=== PATIENT | female | born 1950 | race Caucasian/White ===

== ENCOUNTER → 2016-10-23 | Outpatient (CLI) | payer BC ==
[~2016-10-23] MED LIST: ASPEC81 PO; ASPI81TA28 PO; ATOR-22 PO; CINN1CAP2 PO; CINNAMON PO; COEN150C PO; COEN1CAP17 PO; CYAN500T PO; FISHOIL PO; GARL10007 PO; GARLTAB3 PO; GINGER PO; GLIM2TAB2 PO; LISI-461 PO; LISI5TAB3 PO; METO25TA56 PO; MULTTAB58 PO; NIAC500T8 PO; OMEGCAP2 PO; OMEP40CA41 PO
[2016-10-23 12:15] LABS: HEMATOCRIT 39.5 % (37-47); MEAN CELL VOLUME 85.7 fL (80-100); MEAN CORPUSCULAR HEMOGLOBIN 29.7 pg (25-34); MEAN CORPUSCULAR HGB CONC 34.7 g/dl (32-36); PLATELET COUNT 188 K/uL (130-400); RED BLOOD COUNT 4.61 M/uL (4.2-5.4); WHITE BLOOD COUNT 8.05 K/uL (4.8-10.8)
[2016-10-23 12:35] LABS: BLOOD UREA NITROGEN 18 mg/dl (7-18); CREATININE 0.78 mg/dl (0.60-1.20); GLUCOSE 179 mg/dl (70-99)
[2016-10-23 12:36] LABS: ALT/SGPT 22 U/L (12-78); BUN/CREATININE RATIO 22.4 (10-20); CALCIUM 9.9 mg/dl (8.5-10.1); CARBON DIOXIDE 27 mmol/L (21-32); CHLORIDE 104 mmol/L (98-107); CHOLESTEROL 166 mg/dl (0-200); POTASSIUM 4.2 mmol/L (3.5-5.1); SODIUM 140 mmol/L (136-145); TRIGLYCERIDES 98 mg/dl (0-150); VERY LOW DENSITY LIPOPROT CALC 20 mg/dl
[2016-10-23 12:37] LABS: ESTIMATED AVERAGE GLUCOSE 169 mg/dl; HA1C FLAG Normal (Normal)
[2016-10-23 12:46] LABS: ALB/GLOB RATIO 0.9 (0.9-2); ALKALINE PHOSPHATASE 90 U/L (45-117); AST/SGOT 15 U/L (15-37); CHOLESTEROL/HDL RATIO 2.4; HDL CHOLESTEROL 70 mg/dl; LDL CHOLESTEROL CALCULATED 76 mg/dl
== END | disposition home or self-care (01) ==
LOC: C.LABBFT 08:14
PROVIDERS: ATTEND Internal Medicine
DX: E11.9 Type 2 diabetes mellitus without complications (principal)

== ENCOUNTER 2016-12-19 19:14 | Emergency (ER) | payer BC, OTHER ==
[~2016-12-19] VITALS: Ht 160 cm; Wt 83.9 kg
[~2016-12-19 19:14] MED LIST changes: -ASPI81TA28 PO; -ATOR-22 PO; -CINN1CAP2 PO; -COEN1CAP17 PO; -GARL10007 PO; -GLIM2TAB2 PO; -LISI-461 PO; -METO25TA56 PO; -OMEGCAP2 PO; -OMEP40CA41 PO
[2016-12-19 19:17] VITALS: TEMP 37.1; Ht 160 cm; Wt 83.9 kg
[2016-12-19] MEDS ORDERED: PROPARACAINE HCL 0.5% OP SOLN 15 ML BTL OP STA (19:34)
[2016-12-19] MEDS ORDERED: GLIM2TAB2 PO (19:50)
[2016-12-19] MEDS ORDERED: GARL10007 PO (19:50)
[2016-12-19] MEDS ORDERED: ATOR-22 PO (19:50)
[2016-12-19] MEDS ORDERED: COEN1CAP17 PO (19:50)
[2016-12-19] MEDS ORDERED: OMEP40CA41 PO (19:50)
[2016-12-19] MEDS ORDERED: METO25TA56 PO (19:50)
[2016-12-19] MEDS ORDERED: LISI-461 PO (19:50)
[2016-12-19] MEDS ORDERED: OMEGCAP2 PO (19:50)
[2016-12-19] MEDS ORDERED: ASPI81TA28 PO (19:50)
[2016-12-19] MEDS ORDERED: CINN1CAP2 PO (19:51)
[2016-12-19] MEDS ORDERED: ARTIFICIAL TEARS OP OINT 3.5 GM TUBE OP ONE (20:15)
--- NOTE | 2016-12-19 20:17 | EMERGENCY ROOM VISIT NOTE ---
ED Visit Note First contact with patient: 19:22 I have personally seen and evaluated the patient with the physician volunteer assistant. I agree with the diagnostic/management decisions and have personally been involved in these decisions and agree with the diagnosis.
[2016-12-19 20:28] VITALS: BP 161/98; PULSE 89; O2SAT 96
--- NOTE | 2016-12-19 21:00 | EMERGENCY ROOM VISIT NOTE ---
History First contact with patient: 19:22 Chief Complaint: EYE ASSESSMENT Stated Complaint: PERFUME IN LT EYE History of Present Illness The patient is a 66 year old female who presents to the Emergency Room with complaints of left eye your dictation. The patient reports accidentally sprang perfume into her eye. She did try to flush it at home, and did have some moderate relief. She tried to call her eye doctor, but they had already left for the day. She presents to emergency department for further evaluation. She denies any blurred vision, and rates her discomfort a 2 out of 10. Tetanus immunization is up-to-date. Review of Systems 10 system review was performed and was negative except for pertinent positives and negatives as indicated in history of present illness Past Medical/Surgical History Medical Problems: (1) Diab Michaelle Wo Compl, Type Ii Or Unspec Type, Not Uncntrld (2) Esophageal Reflux (3) Hyperlipidemia Nec/Nos (4) Hypertension Nos (5) Mal Ed Skin Face Nec (6) Obesity, Nos Family History Unremarkable Social History Smoking Status: Never Smoker Alcohol Use: none Marital Status: Occupation Status: retired Current/Historical Medications Scheduled Aspirin (Aspirin Ec), 81 MG PO DAILY Atorvastatin (Lipitor), 20 MG PO HS Cinnamon (Cinnamon), 500 MG PO DAILY Coenzyme Q10 (Ubidecarenone) (Co Q 10), 100 MG PO DAILY Garlic (Garlic), 1,000 MG PO DAILY Glimepiride (Glimepiride), 2 MG PO DAILY Lisinopril (Zestril), 10 MG PO DAILY Metoprolol Tartrate (Lopressor) (Lopressor), 25 MG PO DAILY Buckeye-3 Fatty Acids (Fish Oil), 1 CAP PO DAILY Omeprazole (Prilosec), 40 MG PO DAILY Allergies Coded Allergies: Sulfa Antibiotics (Verified Allergy, Unknown, Unknown, 12/19/16) Physical Exam Vital Signs Date Time Temp Pulse Resp B/P Pulse Ox O2 Delivery O2 Flow Rate FiO2 12/19/16 20:28 89 16 161/98 96 Room Air 12/19/16 19:17 37.1 97 20 183/93 98 Room Air Right Eye Acuity: 20/30 Left Eye Acuity: 20/30 Pain Rating (0-10): 0 Physical Exam CONSTITUTIONAL: Healthy and well nourished. Alert and oriented X 3 with positive affect. Patient is not appear in any acute distress. HEENT: Normocephalic, atraumatic. Pupils equal, round and reactive. No facial erythema or edema. Examination of left eye does not show any conjunctival injection or excessive tearing. No rhinorrhea. INTEGUMENTARY: No rash or other significant dermatologic conditions noted. NEUROLOGIC: No focal neurologic deficits noted. Medical Decision & Procedures Medications Administered Medications (Trade) Dose Ordered Sig/Farhat Route Start Time Stop Time Status Last Admin Dose Admin Proparacaine HCl (Alcaine 0.5% Oph Soln) 2 drops NOW STAT OP 12/19/16 19:34 12/19/16 19:35 DC 12/19/16 20:01 2 DROPS Artificial Tears (Lacri-Lube Oph Oint) 1 appln NOW ONCE OP 12/19/16 20:15 12/19/16 20:16 DC 12/19/16 20:23 1 APPLN Procedure Attempted I irrigation with Akil lens was attempted but was mostly unsuccessful because the patient could not lay on her back. 2 drops of Alcaine were instilled into the eye, and a Akil lens was inserted. In an upright seated position, approximately 100 mL of normal saline was infused through the eye. The patient's procedure, and denied any significant symptoms. ED Course Patient history and physical exam were performed. Nurse's notes were reviewed. Attempted Akil lens irrigation was performed with only 100 mL of normal saline irrigated through the eye. At this point, the patient was provided Lacri -Lube ointment, and encouraged to use it as needed. She was instructed to follow-up with her mechanical maintenance engineer if symptoms are not improving within the next 24 hours. The patient was happy with plan of care, voiced understanding of all discharge instructions, and denied any discomfort at the time of discharge. The patient was also seen and examined by Dr. Gongora, ED attending physician, who agrees with workup and plan of care. Medical Decision Impression Primary Impression: Chemical conjunctivitis of left eye Departure Information Dispostion Home / Self-Care Forms HOME CARE DOCUMENTATION FORM, IMPORTANT VISIT INFORMATION Patient Instructions My Dialogic Additional Instructions Apply Lacri-Lube ointment to the eye as needed for relief. You may continue with your Refresh eyedrops. Follow-up with your mechanical maintenance engineer if you still have persistent irritation beyond 24 hours.
== END 2016-12-19 20:27 | disposition home or self-care (01) ==
LOC: C.EDB 19:15 → C.EDD 20:27
DX: H10.212 Acute toxic conjunctivitis, left eye (principal); E11.9 Type 2 diabetes mellitus without complications; K21.9 Gastro-esophageal reflux disease without esophagitis; I10 Essential (primary) hypertension; E78.5 Hyperlipidemia, unspecified; Z79.82 Long term (current) use of aspirin

== ENCOUNTER → 2017-01-23 | Outpatient (CLI) | payer BC ==
[~2017-01-23] MED LIST changes: -ASPEC81 PO; +ASPI81TA28 PO; +ATOR-22 PO; +CINN1CAP2 PO; -CINNAMON PO; -COEN150C PO; +COEN1CAP17 PO; -CYAN500T PO; -FISHOIL PO; +GARL10007 PO; -GARLTAB3 PO; -GINGER PO; +GLIM2TAB2 PO; +LISI-461 PO; -LISI5TAB3 PO; +METO25TA56 PO; -MULTTAB58 PO; -NIAC500T8 PO; +OMEGCAP2 PO; +OMEP40CA41 PO
--- NOTE | 2017-01-23 15:31 | DIAGNOSTIC IMAGING REPORT ---
THYROID ULTRASONOGRAPHY CLINICAL HISTORY: Thyroid nodules COMPARISON STUDY: 09/22/2015 FINDINGS: The right lobe of thyroid measures 3.5 x 1.5 x 1.2 cm. The left lobe of thyroid measures 3.9 x 1.6 x 1.2 cm. There are multiple bilateral thyroid nodules. The dominant thyroid nodule in the right measures 6 x 5 x 3 mm and remains unchanged from the prior study. This is a hypoechoic wider than tall nodule containing small echogenic foci consistent with either tiny calculi or colloid artifact. The largest nodule the left measures 16 x 13 x 8 mm. This is a hypoechoic wider than tall circumscribed lower pole nodule. This remains unchanged. IMPRESSION: Stable multinodular thyroid. Electronically signed by: Luca Hernandez M.D. 01/23/2017 3:30 PM Dictated Date/Time: 01/23/2017 3:28 PM
== END | disposition home or self-care (01) ==
LOC: C.ULTR 15:01
PROVIDERS: ATTEND Physician Assistant Medical
DX: E04.2 Nontoxic multinodular goiter (principal)

== ENCOUNTER → 2017-02-14 | Outpatient (CLI) | payer BC ==
[2017-02-14 13:16] LABS: MANUAL MICROSCOPIC REQUIRED? NO; REVIEW REQ? NO; URINE APPEARANCE CLEAR (CLEAR); URINE BILIRUBIN NEG (NEG); URINE COLOR YELLOW; URINE NITRITE NEG (NEG); URINE PH 6.5 (4.5-7.5); UROBILINOGEN NEG (NEG); ZZUR CULT IF INDIC CLEAN CATCH YES
[2017-02-14 17:02] LABS: RATIO 90.3 mcg/mg (0-30.0)
== END | disposition home or self-care (01) ==
LOC: C.LABBFT 09:29
PROVIDERS: ATTEND Nurse Practitioner
DX: R39.9 Unspecified symptoms and signs involving the genitourinary system (principal)

== ENCOUNTER → 2017-02-28 | Outpatient (CLI) | payer BC ==
[2017-02-28 12:33] LABS: CALCIUM 9.8 mg/dl (8.5-10.1)
[2017-02-28 12:39] LABS: ALT/SGPT 26 U/L (12-78); AST/SGOT 16 U/L (15-37); BLOOD UREA NITROGEN 16 mg/dl (7-18); BUN/CREATININE RATIO 25.9 (10-20); CARBON DIOXIDE 30 mmol/L (21-32); CHLORIDE 105 mmol/L (98-107); CHOLESTEROL 160 mg/dl (0-200); CREATININE 0.63 mg/dl (0.60-1.20); GLUCOSE 126 mg/dl (70-99); POTASSIUM 3.9 mmol/L (3.5-5.1); SODIUM 141 mmol/L (136-145); TRIGLYCERIDES 126 mg/dl (0-150); VERY LOW DENSITY LIPOPROT CALC 25 mg/dl
[2017-02-28 12:41] LABS: ESTIMATED AVERAGE GLUCOSE 160 mg/dl; HA1C FLAG Normal (Normal)
[2017-02-28 12:49] LABS: ALB/GLOB RATIO 1.1 (0.9-2); ALKALINE PHOSPHATASE 81 U/L (45-117); CHOLESTEROL/HDL RATIO 2.4; HDL CHOLESTEROL 68 mg/dl; LDL CHOLESTEROL CALCULATED 67 mg/dl
== END | disposition home or self-care (01) ==
LOC: C.LABBFT 10:24
PROVIDERS: ATTEND Internal Medicine
DX: E11.9 Type 2 diabetes mellitus without complications (principal)

== ENCOUNTER → 2017-04-16 | Outpatient (CLI) | payer BC ==
--- NOTE | 2017-04-16 14:02 | DIAGNOSTIC IMAGING REPORT ---
LEFT FOOT MIN 3 VIEWS ROUTINE CLINICAL HISTORY: Left foot pain. Fifth toe injury. COMPARISON: Left foot radiographs January 22, 2012. FINDINGS: Tarsometatarsal joints are intact. There is an acute minimally displaced fracture within the shaft of the proximal phalanx of the left fifth toe. 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 Extensive posterior and plantar calcaneal spurring is noted. IMPRESSION: Acute minimally displaced fracture of the proximal phalanx of the left fifth toe. Electronically signed by: Obed Spears M.D. 04/16/2017 2:01 PM Dictated Date/Time: 04/16/2017 1:58 PM
--- NOTE | 2017-04-16 14:03 | DIAGNOSTIC IMAGING REPORT ---
LEFT FIFTH TOE 3 VIEWS CLINICAL HISTORY: Left foot pain. Fifth toe injury. FINDINGS: 3 views of left fifth toe are correlated with radiographs of left foot dated 01/22/2012. The skeletal structures are osteopenic. There is a minimally distracted fracture through the proximal shaft of the fifth proximal phalanx. Overlying soft tissue edema is noted. There is no intra-articular extension. No additional fracture is identified. The joint spaces of the fifth toe appear preserved. A large enthesophyte is noted at the base of the fifth metatarsal. IMPRESSION: Minimally distracted fracture through the proximal shaft of the fifth proximal phalanx as above. Electronically signed by: Yaron Godinez M.D. 04/16/2017 2:01 PM Dictated Date/Time: 04/16/2017 2:00 PM
== END | disposition home or self-care (01) ==
LOC: C.RAD1850 13:32
PROVIDERS: ATTEND Physician Assistant Medical
DX: M79.673 Pain in unspecified foot (principal); S99.929A Unspecified injury of unspecified foot, initial encounter; M79.676 Pain in unspecified toe(s); X58.XXXA Exposure to other specified factors, initial encounter

== ENCOUNTER → 2017-07-19 | Outpatient (CLI) | payer BC ==
--- NOTE | 2017-07-22 12:36 | MAMMOGRAPHY REPORT ---
BILATERAL DIGITAL SCREENING MAMMOGRAM WITH CAD: 07/19/2017 CLINICAL HISTORY: Routine screening. Patient has no complaints. TECHNIQUE: Current study was also evaluated with a Computer Aided Detection (CAD) system. Bilateral CC and MLO views were obtained. COMPARISON: Comparison is made to exams dated: 07/13/2016 mammogram, 06/02/2015 mammogram, 05/27/2014 ma mmogram, 05/21/2013 mammogram, 05/15/2012 mammogram, and 05/10/2011 mammogram - [facility]. BREAST COMPOSITION: The tissue of both breasts is heterogeneously dense, which may obscure small mas ses. FINDINGS: No suspicious masses, calcifications, or areas of architectural distortion are noted in ei ther breast. There has been no significant interval change compared to prior exams. Bilateral asymme tries and bilateral benign-appearing calcifications are not significantly changed. IMPRESSION: ACR BI-RADS CATEGORY 2: BENIGN There is no mammographic evidence of malignancy. A 1 year screening mammogram is recommended. The pa tient will receive written notification of the results. Approximately 10% of breast cancers are not detected with mammography. A negative mammographic report should not delay biopsy if a clinically suggestive mass is present. Yanet Costa M.D. /:07/19/2017 15:01:47 Judge Clerk: Viki ESTRELLA)(Dianna), [facility] letter sent: Normal 1/2 BI-RADS Code: ACR BI-RADS Category 2: Benign
== END | disposition home or self-care (01) ==
LOC: C.MAMM 12:58
PROVIDERS: ATTEND Internal Medicine
DX: Z12.31 Encounter for screening mammogram for malignant neoplasm of breast (principal)

== ENCOUNTER → 2017-07-29 | Outpatient (CLI) | payer BC ==
[2017-07-29 12:21] LABS: MEAN CELL VOLUME 87.1 fL (80-100); MEAN CORPUSCULAR HEMOGLOBIN 30.4 pg (25-34); MEAN CORPUSCULAR HGB CONC 34.9 g/dl (32-36); MEAN PLATELET VOLUME 10.7 fL (7.4-10.4); PLATELET COUNT 183 K/uL (130-400); RED BLOOD COUNT 4.25 M/uL (4.2-5.4)
[2017-07-29 12:30] LABS: ESTIMATED AVERAGE GLUCOSE 174 mg/dl; HA1C FLAG Normal (Normal)
[2017-07-29 13:25] LABS: ALT/SGPT 23 U/L (12-78); AST/SGOT 15 U/L (15-37); BLOOD UREA NITROGEN 16 mg/dl (7-18); BUN/CREATININE RATIO 22.6 (10-20); CALCIUM 9.1 mg/dl (8.5-10.1); CARBON DIOXIDE 26 mmol/L (21-32); CHLORIDE 106 mmol/L (98-107); GLUCOSE 153 mg/dl (70-99); POTASSIUM 4.1 mmol/L (3.5-5.1); SODIUM 138 mmol/L (136-145)
[2017-07-29 13:37] LABS: ALKALINE PHOSPHATASE 81 U/L (45-117); CHOLESTEROL 149 mg/dl (0-200); CHOLESTEROL/HDL RATIO 2.1; HDL CHOLESTEROL 72 mg/dl; LDL CHOLESTEROL CALCULATED 56 mg/dl; TRIGLYCERIDES 107 mg/dl (0-150); VERY LOW DENSITY LIPOPROT CALC 21 mg/dl
== END | disposition home or self-care (01) ==
LOC: C.LABBFT 09:14
PROVIDERS: ATTEND Internal Medicine
DX: E11.9 Type 2 diabetes mellitus without complications (principal)

== ENCOUNTER → 2017-11-29 | Outpatient (CLI) | payer BC | END | disposition home or self-care (01) | LOC: C.LABBFT 15:16 | PROVIDERS: ATTEND Internal Medicine | DX: R39.9 Unspecified symptoms and signs involving the genitourinary system (principal) ==

== ENCOUNTER → 2017-12-06 | Outpatient (CLI) | payer BC ==
[2017-12-06 13:01] LABS: ALBUMIN 3.7 gm/dl (3.4-5.0); ALT/SGPT 25 U/L (12-78); BLOOD UREA NITROGEN 21 mg/dl (7-18); CALCIUM 9.5 mg/dl (8.5-10.1); CARBON DIOXIDE 29 mmol/L (21-32); CHOLESTEROL 156 mg/dl (0-200); CREATININE 0.73 mg/dl (0.60-1.20); GLUCOSE 150 mg/dl (70-99); SODIUM 136 mmol/L (136-145)
[2017-12-06 13:12] LABS: ALKALINE PHOSPHATASE 91 U/L (45-117); AST/SGOT 13 U/L (15-37); LDL CHOLESTEROL CALCULATED 70 mg/dl; TOTAL PROTEIN 7.7 gm/dl (6.4-8.2)
[2017-12-06 13:14] LABS: HEMOGLOBIN A1C 7.6 % (4.5-5.6)
== END | disposition home or self-care (01) ==
LOC: C.LABBFT 10:20
PROVIDERS: ATTEND Internal Medicine
DX: E11.65 Type 2 diabetes mellitus with hyperglycemia (principal)

== ENCOUNTER → 2018-01-31 | Outpatient (CLI) | payer BC ==
--- NOTE | 2018-01-31 16:36 | DIAGNOSTIC IMAGING REPORT ---
THYROID ULTRASOUND HISTORY: SOLITARY THYROID NODULE COMPARISON: Thyroid ultrasound 01/23/2017. FINDINGS: Right lobe: 2.8 x 1.3 x 1.2 cm. There is a 6 x 5 mm hypoechoic nodule within the lower pole. This is similar in size. Left lobe: 3.9 x 1.5 x 1.0 cm. There is a 1.2 x 0.9 x 0.9 cm hypoechoic nodule within the lower pole. This has slightly decreased in size. Isthmus: 2 mm in thickness. No nodules. IMPRESSION: 1. Slight decrease in size in the left lower pole nodule as described above. 2. The subcentimeter right lower pole nodule is similar in size. Electronically signed by: Ricki Brand M.D. 01/31/2018 4:34 PM Dictated Date/Time: 01/31/2018 4:31 PM
== END | disposition home or self-care (01) ==
LOC: C.ULTR 15:35
DX: E04.2 Nontoxic multinodular goiter (principal)

== ENCOUNTER → 2018-03-03 | Outpatient (CLI) | payer BC | END | disposition home or self-care (01) | LOC: C.LABBFT 11:20 | PROVIDERS: ATTEND Nurse Practitioner | DX: R39.9 Unspecified symptoms and signs involving the genitourinary system (principal) ==

== ENCOUNTER → 2018-05-28 | Outpatient (CLI) | payer BC ==
[2018-05-28 13:09] LABS: HEMOGLOBIN A1C 6.9 % (4.5-5.6)
[2018-05-28 13:33] LABS: ALBUMIN 4.1 gm/dl (3.4-5.0); ALKALINE PHOSPHATASE 77 U/L (45-117); ALT/SGPT 25 U/L (12-78); AST/SGOT 17 U/L (15-37); BLOOD UREA NITROGEN 20 mg/dl (7-18); CALCIUM 9.4 mg/dl (8.5-10.1); CARBON DIOXIDE 29 mmol/L (21-32); CHOLESTEROL 140 mg/dl (0-200); CREATININE 0.74 mg/dl (0.60-1.20); GLUCOSE 145 mg/dl (70-99); LDL CHOLESTEROL CALCULATED 61 mg/dl; POTASSIUM 4.2 mmol/L (3.5-5.1); SODIUM 138 mmol/L (136-145); TOTAL PROTEIN 7.5 gm/dl (6.4-8.2)
== END | disposition home or self-care (01) ==
LOC: C.LABBFT 07:25
PROVIDERS: ATTEND Internal Medicine
DX: E11.65 Type 2 diabetes mellitus with hyperglycemia (principal); R39.9 Unspecified symptoms and signs involving the genitourinary system